=== PATIENT | male | born 1965 ===

== ENCOUNTER 2021-04-18 10:38 | Emergency (ER) | payer SELFPAY ==
[2021-04-18 11:00] VITALS: BP 112/73
--- NOTE | 2021-04-18 12:33 | Emergency Department Report ---
Chief Complaint: Urogenital-Male Stated Complaint: PAINFUL URINATION Time Seen by Provider: 04/18/21 12:31 - HPI History of Present Illness: Patient is a 55-year-old male presents emergency room complaints of dysuria that began 5 days ago. Patient states that he had a sexual encounter approximately 2 weeks ago. He states he has seen a small amount of penile discharge. He denies any fever, nausea, vomiting, diarrhea, urinary retention, pain or swelling the testicles, abdominal pain, back pain, urinary frequency, urinary urgency. Patient denies any past medical history. No allergies to medications. Vitals are normal On exam: Non toxic appearing, no acute distress atraumatic, normocephalic normal appearance of the eyes, EOMI, no periorbital edema or ecchymosis moist mucus membranes No respiratory distress, no accessory muscle use A&O x4, normal gait Patient is presenting with symptoms most likely consistent with STD given that he is having dysuria after a sexual encounter He denies any fever, nausea, vomiting, diarrhea, urinary retention, pain or swelling the testicles, abdominal pain, back pain, urinary frequency, urinary urgency. This hospital facility does not test or treat for male uncomplicated STDs Discussed return precautions Patient given appropriate resources Medical screen examination performed and there is no threat to life or limb at this time - Exam Vital Signs: Vital Signs 04/18/21 10:58 Temperature 97.6 F Pulse Rate 68 Respiratory 18 Rate Blood Pressure 112/73 O2 Sat by Pulse 97 Oximetry MSE screening note: Focused history and physical exam performed. ED Disposition for MSE Clinical Impression: Dysuria, Concern about STD in male without diagnosis Disposition: HOME / SELF CARE / HOMELESS Is pt being admited?: No Does the pt Need Aspirin: No Condition: Stable Instructions: Dysuria, Safe Sex Additional Instructions: please follow up with a clinic or health department in order to have a full STD panel. please have any partner tested and treated as well. avoid sexual intercourse. return to the emergency room for any new or worsening symptoms. Reelio Address: [address] [place] [id number] Referrals: [facility] [Outside] - 2-3 Days Time of Disposition: 12:32 Print Language: MALAGASY
== END 2021-04-18 12:34 | disposition home or self-care (01) ==
LOC: ED 10:38
DX: R30.0 Dysuria (principal); Z20.2 Contact with and (suspected) exposure to infections with a predominantly sexual mode of transmission
CPT/HCPCS: 99281